=== PATIENT | male | born 1940 | race Native Hawaiian/Other Pacific Islander ===

== ENCOUNTER 2022-02-09 11:51 | Emergency (ER) | payer OTHER ==
[~2022-02-09] VITALS: Ht 182.9 cm; Wt 106.6 kg
[~2022-02-09 11:51] MED LIST: AMLO2.5T PO; CONZIP100 MG PO; COZAAR100 MG PO; FORTAMET500 MG PO; GLYBURIDE2.5 MG PO; HYDR25TA60 PO; HYDRALAZINE10 MG PO; LEVO0.0723 PO; LIPITOR40 MG PO; METOPROLOL25 M1 OR
[2022-02-09 14:00] VITALS: BP 119/80; TEMP 98.9
== END 2022-02-09 14:00 | disposition home or self-care (01) ==
LOC: ED 11:51
DX: J06.9 Acute upper respiratory infection, unspecified (principal); U07.1 COVID-19
CPT/HCPCS: 87635; 99283; U0003

== ENCOUNTER 2022-05-01 12:39 | Emergency (ER) | payer OTHER ==
[~2022-05-01] VITALS: Ht 182.9 cm; Wt 106.6 kg
[2022-05-01 14:07] LABS: PLATELET COUNT 259 K/uL (142-355)
[2022-05-01 14:17] LABS: POTASSIUM 3.9 mmol/L (3.6-5.2)
[2022-05-01 23:30] VITALS: BP 141/62; TEMP 97.8
== END 2022-05-01 23:30 | disposition short-term general hospital (02) ==
LOC: ED 12:39
PROVIDERS: Emergency Medicine Emergency Medical Services
DX: R29.6 Repeated falls (principal); R42 Dizziness and giddiness; I48.91 Unspecified atrial fibrillation; Z11.52 Encounter for screening for COVID-19; W01.198A Fall on same level from slipping, tripping and stumbling with subsequent striking against other object, initial encounter; Y92.89 Other specified places as the place of occurrence of the external cause
CPT/HCPCS: 80053; 81002; 84484; 85027; 85610; 87635; 93005; 99283; U0003

== ENCOUNTER 2022-07-28 16:32 | Inpatient (IN) | payer OTHER | END 2022-08-10 12:21 | disposition still patient (30) | LOC: PAVC 16:32 | PROVIDERS: ADMIT Family Medicine; ATTEND Family Medicine ==

== ENCOUNTER 2022-07-29 06:00 | Outpatient (CLI) | payer OTHER ==
[2022-07-29 06:44] LABS: PLATELET COUNT 266 K/uL (142-355)
== END 2022-07-29 18:52 | disposition home or self-care (01) ==
LOC: LAB 06:00
PROVIDERS: ATTEND Family Medicine
DX: E11.22 Type 2 diabetes mellitus with diabetic chronic kidney disease (principal); E78.2 Mixed hyperlipidemia; I12.9 Hypertensive chronic kidney disease with stage 1 through stage 4 chronic kidney disease, or unspecified chronic kidney disease; N18.9 Chronic kidney disease, unspecified
CPT/HCPCS: 80053; 80061; 82306; 82607; 82728; 83036; 83540; 83550; 84153; 84443; 85027; 87081

== ENCOUNTER 2022-08-10 12:54 | Inpatient (IN) | payer OTHER | END 2022-09-10 10:58 | disposition still patient (30) | LOC: PAVC 12:54 | PROVIDERS: ADMIT Family Medicine; ATTEND Family Medicine ==

== ENCOUNTER 2022-08-11 07:13 | Outpatient (CLI) | payer OTHER ==
[2022-08-11 08:14] LABS: PLATELET COUNT 297 K/uL (142-355)
[2022-08-11 09:11] LABS: POTASSIUM 4.1 mmol/L (3.6-5.2)
== END 2022-08-11 19:09 | disposition home or self-care (01) ==
LOC: LAB 07:13
PROVIDERS: ATTEND Family Medicine
DX: E11.22 Type 2 diabetes mellitus with diabetic chronic kidney disease (principal); E11.51 Type 2 diabetes mellitus with diabetic peripheral angiopathy without gangrene; N18.9 Chronic kidney disease, unspecified
CPT/HCPCS: 80053; 85027

== ENCOUNTER 2022-08-14 05:06 | Outpatient (CLI) | payer OTHER | END 2022-08-14 19:32 | disposition home or self-care (01) | LOC: LAB 05:06 | PROVIDERS: ATTEND Family Medicine | DX: E03.8 Other specified hypothyroidism (principal) | CPT/HCPCS: 84436; 84443; 84480 ==

== ENCOUNTER 2022-09-10 14:45 | Inpatient (IN) | payer OTHER | END 2022-10-11 09:31 | disposition still patient (30) | LOC: PAVC 14:45 | PROVIDERS: ADMIT Family Medicine; ATTEND Family Medicine ==

== ENCOUNTER 2022-10-04 05:53 | Outpatient (CLI) | payer OTHER ==
[2022-10-04 07:53] LABS: PLATELET COUNT 272 K/uL (142-355)
== END 2022-10-04 19:46 | disposition home or self-care (01) ==
LOC: LAB 05:53
PROVIDERS: ATTEND Family Medicine
DX: D64.89 Other specified anemias (principal); K92.2 Gastrointestinal hemorrhage, unspecified
CPT/HCPCS: 85027

== ENCOUNTER 2022-10-07 05:16 | Outpatient (CLI) | payer OTHER | END 2022-10-07 19:02 | disposition home or self-care (01) | LOC: LAB 05:16 | PROVIDERS: ATTEND Family Medicine | DX: E11.22 Type 2 diabetes mellitus with diabetic chronic kidney disease (principal); N18.9 Chronic kidney disease, unspecified | CPT/HCPCS: 36415; 84165 ==

== ENCOUNTER 2022-10-09 09:06 | Outpatient (CLI) | payer OTHER | END 2022-10-09 19:00 | disposition home or self-care (01) | LOC: LAB 09:06 | PROVIDERS: ATTEND Family Medicine | DX: I12.9 Hypertensive chronic kidney disease with stage 1 through stage 4 chronic kidney disease, or unspecified chronic kidney disease (principal); E11.22 Type 2 diabetes mellitus with diabetic chronic kidney disease | CPT/HCPCS: 86335 ==

== ENCOUNTER 2022-10-11 10:08 | Outpatient (CLI) | payer OTHER | END 2022-10-11 19:08 | disposition home or self-care (01) | LOC: LAB 10:08 | PROVIDERS: ATTEND Family Medicine | DX: E11.51 Type 2 diabetes mellitus with diabetic peripheral angiopathy without gangrene (principal) | CPT/HCPCS: 83036 ==

== ENCOUNTER 2022-10-11 12:48 | Inpatient (IN) | payer OTHER | END 2022-11-08 15:24 | disposition still patient (30) | LOC: PAVC 12:48 | PROVIDERS: ADMIT Family Medicine; ATTEND Family Medicine ==

== ENCOUNTER 2022-11-08 15:36 | Inpatient (IN) | payer OTHER | END 2022-12-09 12:27 | disposition still patient (30) | LOC: PAVC 15:36 | PROVIDERS: ADMIT Family Medicine; ATTEND Family Medicine ==

== ENCOUNTER 2022-11-13 07:44 | Outpatient (CLI) | payer OTHER ==
[2022-11-13 07:50] LABS: PLATELET COUNT 263 K/uL (142-355)
[2022-11-13 08:27] LABS: POTASSIUM 3.5 mmol/L (3.6-5.2)
== END 2022-11-13 19:41 | disposition home or self-care (01) ==
LOC: LAB 07:44
PROVIDERS: ATTEND Family Medicine
DX: E11.22 Type 2 diabetes mellitus with diabetic chronic kidney disease (principal)
CPT/HCPCS: 80053; 85027

== ENCOUNTER 2022-11-29 14:40 | Outpatient (CLI) | payer OTHER | END 2022-11-29 23:05 | disposition home or self-care (01) | LOC: LAB 14:40 | PROVIDERS: ATTEND Family Medicine | DX: M71.58 Other bursitis, not elsewhere classified, other site (principal); R22.9 Localized swelling, mass and lump, unspecified | CPT/HCPCS: 84550; 86140 ==

== ENCOUNTER 2022-12-09 12:48 | Inpatient (IN) | payer OTHER | END 2023-01-08 16:45 | disposition still patient (30) | LOC: PAVC 12:48 | PROVIDERS: ADMIT Family Medicine; ATTEND Family Medicine ==

== ENCOUNTER 2023-01-08 09:13 | Outpatient (CLI) | payer OTHER ==
[2023-01-08 09:41] LABS: PLATELET COUNT 222 K/uL (142-355)
[2023-01-08 10:06] LABS: POTASSIUM 3.9 mmol/L (3.6-5.2)
== END 2023-01-08 19:39 | disposition home or self-care (01) ==
LOC: LAB 09:13
PROVIDERS: ATTEND Family Medicine
DX: E11.22 Type 2 diabetes mellitus with diabetic chronic kidney disease (principal); E53.8 Deficiency of other specified B group vitamins; E03.8 Other specified hypothyroidism; N18.9 Chronic kidney disease, unspecified; I12.9 Hypertensive chronic kidney disease with stage 1 through stage 4 chronic kidney disease, or unspecified chronic kidney disease
CPT/HCPCS: 80053; 80061; 82607; 83036; 84443; 85027

== ENCOUNTER 2023-01-08 16:57 | Inpatient (IN) | payer OTHER | END 2023-02-08 12:40 | disposition still patient (30) | LOC: PAVC 16:57 | PROVIDERS: ADMIT Family Medicine; ATTEND Family Medicine ==

== ENCOUNTER 2023-02-08 12:51 | Inpatient (IN) | payer OTHER | END 2023-03-10 17:45 | disposition still patient (30) | LOC: PAVC 12:51 | PROVIDERS: ADMIT Family Medicine; ATTEND Family Medicine ==

== ENCOUNTER 2023-03-13 04:40 | Outpatient (CLI) | payer OTHER ==
[2023-03-13 05:20] LABS: PLATELET COUNT 213 K/uL (142-355)
[2023-03-13 05:35] LABS: POTASSIUM 3.9 mmol/L (3.6-5.2)
== END 2023-03-13 18:53 | disposition home or self-care (01) ==
LOC: LAB 04:40
PROVIDERS: ATTEND Family Medicine
DX: E11.22 Type 2 diabetes mellitus with diabetic chronic kidney disease (principal); N18.9 Chronic kidney disease, unspecified
CPT/HCPCS: 36415; 80053; 85027

== ENCOUNTER 2023-04-10 14:27 | Outpatient (CLI) | payer OTHER | END 2023-04-10 20:33 | disposition home or self-care (01) | LOC: LAB 14:27 | PROVIDERS: ATTEND Family Medicine | DX: E11.22 Type 2 diabetes mellitus with diabetic chronic kidney disease (principal); N18.9 Chronic kidney disease, unspecified | CPT/HCPCS: 36415; 83036 ==

== ENCOUNTER → 2023-05-25 | Outpatient (CLI) | payer OTHER | LOC: LAB 21:16 | PROVIDERS: ATTEND Family Medicine | DX: E11.22 Type 2 diabetes mellitus with diabetic chronic kidney disease (principal); N18.9 Chronic kidney disease, unspecified | CPT/HCPCS: 36415; 82947 ==